=== PATIENT | female | born 1995 | race Caucasian/White ===

== ENCOUNTER 2021-03-02 06:26 | Emergency (ER) | payer MEDICAID ==
[2021-03-02 07:37] LABS: BASOPHIL 0.1 % (0-2); EOSINOPHIL 0.3 % (0-5); HCT 31.6 % (37.0-47.0); HGB 9.6 g/dl (12.5-16.0); LYMPHOCYTE 15.5 % (15-48); MCHC 30.4 g/dL (32.0-36.0); MONOCYTE 4.8 % (0-12); MPV 10.4 fL (6.0-9.5); NEUTROPHIL 78.1 % (41-80); NRBC 0; PLT 208 K/uL (150-400); RDW 16.7 % (11.5-14.0); WBC 6.9 K/uL (4.0-10.5)
[2021-03-02 07:56] LABS: ALBUMIN 2.4 g/dL (3.4-5.0); BILIRUBIN - TOTAL 0.5 mg/dL (0.2-1.0); BUN/CREAT RATIO (CALC) 4.3 RATIO; CREATININE 0.47 mg/dL (0.51-0.95); GLOBULIN (CALCULATION) 3.4 g/dL; TOTAL PROTEIN 5.8 g/dL (6.4-8.2)
[2021-03-02 09:44] LABS: BILIRUBIN NEGATIVE (NEGATIVE); BLOOD NEGATIVE Ery/uL (NEGATIVE); CLARITY CLEAR (CLEAR); COLOR YELLOW (YELLOW); GLUCOSE (U) NORMAL (NORMAL); LEUKOCYTES 1+ Leu/uL (NEGATIVE); NITRITE NEGATIVE (NEGATIVE); PROTEIN NEGATIVE (NEGATIVE); SPECIFIC GRAVITY 1.015 (1.001-1.030); pH 6.5 (5.0-9.0)
[2021-03-02 10:00] LABS: BACTERIA 3+; TRANSITIONAL EPITHELIAL CELLS RARE
[2021-03-02] MEDS ORDERED: ONDANSETRON ODT4 MG PO (12:28)
[2021-03-02] MEDS ORDERED: KEFLEX250 MG PO (12:28)
[2021-03-02] MEDS ORDERED: VENTOLIN HFA18 GM INH (12:40)
== END 2021-03-02 13:00 | disposition home or self-care (01) ==
LOC: FER 06:26
PROVIDERS: Emergency Medicine; Emergency Medicine Emergency Medical Services
DX: O98.513 Other viral diseases complicating pregnancy, third trimester (principal); O99.283 Endocrine, nutritional and metabolic diseases complicating pregnancy, third trimester; O99.891 Other specified diseases and conditions complicating pregnancy; U07.1 COVID-19; E86.0 Dehydration; R82.71 Bacteriuria; Z3A.30 30 weeks gestation of pregnancy; Z79.82 Long term (current) use of aspirin
CPT/HCPCS: 36415; 71045; 80053; 81001; 84145; 85025; 87088; 94010; 94664; J0696; J2405; J7030